=== PATIENT | male | born 1980 | race Hispanic/Latino ===

== ENCOUNTER 2025-01-23 13:54 | Emergency (ER) | payer BC, OTHER ==
[2025-01-23 14:56] LABS: Absolute Basophils 0.1 K/uL (0-0.5); Absolute Eosinophils 0.5 K/uL (0-0.5); Absolute Lymphocytes (CBC) 3.1 K/uL (0.7-4.9); Absolute Monocytes 0.6 K/uL (0.1-1.3); Absolute Neutrophil 1.7 K/uL (1.8-8.0); Basophils % 2.2 % (0-1.3); Eosinophils % 8.7 % (0-4.4); Hematocrit 20.3 % (39.6-49.0); Hemoglobin 6.6 g/dL (13.6-17.9); Lymphocytes % 50.3 % (15.3-44.8); MCH 23.9 pg (27.0-35.0); MCHC 32.4 g/dL (32.0-36.0); MCV 73.9 fL (80-100); MPV 7.2 fL (7.6-11.3); Monocytes % 10.2 % (3.3-12.3); Neutrophils % 28.6 % (41.7-73.7); Platelets 168 thou/uL (152-406); RBC Red Blood Cell Count 2.75 M/uL (4.33-5.43); Red Cell Distribution Width 20.7 % (12.1-15.2)
[2025-01-23 15:20] LABS: Albumin 2.8 g/dL (3.4-5.0); Albumin/Globulin Ratio 0.8 (1.1-1.8); Anion Gap 6.6 mEq/L (5.0-15.0); Bilirubin Total 2.8 mg/dL (0.2-1.0); Ferritin 25.4 ng/mL (26-388); Globulin 3.7 g/dL (2.3-3.5); Potassium 3.6 mEq/L (3.5-5.1); Protein, Total 6.5 g/dL (6.4-8.2)
[2025-01-23 16:33] LABS: Anisocytosis 1+; Blood Morphology Comment NOTED (NOT SEEN); Platelet Estimate ADEQ; White Blood Cell Scan OK (OK)
[2025-01-23 16:34] LABS: Poikilocytosis 1+
--- NOTE | 2025-01-23 17:33 | RAD REPORT ---
EXAMINATION: CT Abdomen Pelvis W Contrast CLINICAL INDICATION: Male, 44 years old. anemia, early satiety, anemia TECHNIQUE: CT abdomen and pelvis was performed, after the administration of IV contrast, as per [facility] protocol. Axial, sagittal and coronal reconstructions were obtained. One or more of the following dose reduction techniques were used: Automated exposure control, adjustment of the mA and k V according to patient size, and iterative reconstruction. Unless otherwise specified, incidental findings do not require dedicated imaging follow-up. COMPARISON: No prior exam. FINDINGS: LOWER CHEST: The visualized lung bases are clear. LIVER: Nodular contour suggesting cirrhosis. Ill-defined regions of hypoattenuation in the hepatic do me extending centrally, could relate to underlying focal lesion/mass. Prominent splenorenal tortuous varicosities suggesting sequelae of portosystemic shunting. BILIARY SYSTEM: Layering isodense material within the gallbladder suggesting sludge. Perihepatic flui d could be related to ongoing portal hypertension. No evidence of intra or extrahepatic biliary ductal dilation on CT. SPLEEN: Near upper limit of normal in size measuring 13.4 cm in long axis. No focal lesion. PANCREAS: No mass, ductal dilation, or fatuma-pancreatic fluid. ADRENALS: Normal; no mass. KIDNEYS: Normal size and contour. No hydronephrosis. URINARY BLADDER: Unremarkable. GASTROINTESTINAL TRACT: No evidence of free air, bowel obstruction or abscess. Mild central mesenter ic edema with trace fluid in the right perihepatic space, along the right paracolic gutter and in the pelvis. Mild distal colonic diverticulosis without evidence of acute diverticulitis. APPENDIX: Normal appendix. LYMPH NODES: No lymphadenopathy. MUSCULOSKELETAL: Healing right anterior eighth, ninth, and 10th rib fractures ADDITIONAL FINDINGS: None. IMPRESSION: Nodular contour of the liver with portosystemic varicosities, mild ascites, borderline splenomegaly, and mild mesenteric edema suggesting cirrhosis with portal hypertension. Ill-defined heterogeneous hypodensities in the region of the hepatic dome, could reflect an underlyin g mass, possibly hepatocellular carcinoma, or dysplastic cirrhotic nodules. The findings can be further evaluated by liver protocol MRI. Healing right anterior eighth, ninth, and 10th rib fractures. Gallbladder sludge.
--- NOTE | 2025-01-23 17:41 | RAD REPORT ---
EXAMINATION: US Abdomen Exam Limited CLINICAL HISTORY: Anemia. Early satiety. Abnormal CT COMPARISON: CT abdomen and pelvis of the same day. TECHNIQUE: Limited upper abdominal grayscale and color flow sonographic images. FINDINGS: Gallbladder: Partially decompressed limiting evaluation. Layering echogenic sludge with no evidence o f shadowing calculi. Wall appears thickened, 4-5 mm, although evaluation is limited by suboptimal distention. No wall hyperemia. Reportedly negative sonographic Cadena sign. Bile ducts: No intrahepatic or extrahepatic biliary dilatation. Common bile duct measures 5 mm. Liver: Visualized portions of the liver demonstrate normal echogenicity with no suspicious findings. Fluid: No ascites. IMPRESSION: Suboptimal gallbladder distention with layering sludge. No other sonographic findings to suggest acut e cholecystitis.
[2025-01-23] MEDS ORDERED: NA CHLORIDE 0.9% 500 ML ONE (18:56)
--- NOTE | 2025-01-24 00:08 | ER ---
Nurse's Notes [facility] Name: Jayson Masterson Age: 44 yrs Sex: Male : 1980 Arrival Date: 01/23/2025 Time: 13:54 Bed 20 Private MD: Diagnosis: Anemia, unspecified;Chronic microcytic anemia,;LIver Cirrhosis with Portal Hypertension , Ascites Presentation: 01/23 14:05 Chief complaint: Patient states: Weak and fatigued for about a year. HGB 6.4 with ll1 Fridays blood draw. Coronavirus screen: Client denies travel out of the [place] in the last 14 days. At this time, the client does not indicate any symptoms associated with coronavirus-19. Ebola Screen: Patient denies travel to an Ebola-affected area in the 21 days before illness onset. Initial Sepsis Screen: Does the patient meet any 2 criteria? No. Patient's initial sepsis screen is negative. Does the patient have a suspected source of infection? No. Patient's initial sepsis screen is negative. Risk Assessment: Do you want to hurt yourself or someone else? Patient reports no desire to harm self or others. Onset of symptoms was January 19, 2025. 14:05 Method Of Arrival: Ambulatory ll1 14:05 Acuity: SAMI 2 ll1 Triage Assessment: 14:00 General: Appears uncomfortable, Behavior is calm, cooperative, appropriate for age, ll1 Reports fatigue for. General: Reports low HGB, needs blood transfusion. Pain: Complains of pain in ribs Quality of pain is described as aching. Neuro: Reports dizziness, weakness. Respiratory: Reports pain in broken ribs. Historical: - Allergies: 14:03 Prednisone; ll1 14:03 tramadol; ll1 - PMHx: 14:00 Anxiety; Asthma; ll1 - PSHx: 14:03 leg surgery; ll1 - Immunization history:: Adult Immunizations up to date. - Infectious Disease History:: Denies. - Social history:: Smoking status: Patient reports the use of cigarette tobacco products, smokes .2 packs per day. - Family history:: not pertinent. - Hospitalizations: : No recent hospitalization is reported. Screenin:[address] [facility] ED Fall Risk Assessment (Adult) History of falling in the last 3 months, dd2 including since admission No falls in past 3 months (0 pts) Confusion or Disorientation No (0 pts) Intoxicated or Sedated No (0 pts) Impaired Gait No (0 pts) Mobility Assist Device Used No (0 pt) Altered Elimination No (0 pt) Score/Fall Risk Level 0 - 2 = Low Risk Oriented to surroundings, Maintained a safe environment, Educated pt \T\ family on fall prevention, incl call for assistance when getting out of bed, Assessed \T\ reinforced patient's understanding of fall precautions, Hourly rounding (assess needs \T\ fall precautionary measures) done. Abuse screen: Denies threats or abuse. Denies injuries from another. Nutritional screening: No deficits noted. Tuberculosis screening: No symptoms or risk factors identified. Assessment: 15:59 Reassessment: No changes from previously documented assessment. Patient and/or family ll1 updated on plan of care and expected duration. Pain level reassessed. 16:45 Reassessment: ASSUMING CARE OF THE PT AT THIS TIME. dd2 21:28 Reassessment: INFUSION OF 1ST UNIT PRBC COMPLETED. PT TOLERATED WELL. dd2 01/24 00:05 Reassessment: Patient and/or family updated on plan of care and expected duration. Pain br2 level reassessed. Patient is alert, oriented x 3, equal unlabored respirations, skin warm/dry/pink. Patient states feeling better. Patient states symptoms have improved. Vital Signs: 01/23 14:05 BP 154 / 87; Pulse 105; Resp 17; Temp 98.6; Pulse Ox 95% ; Weight 115.67 kg; Height 6 ll1 ft. 0 in. ; Pain 7/10; 19:02 BP 144 / 83; Pulse 102; Resp 16; Temp 98.2; Pulse Ox 100% on R/A; dd2 22:08 BP 129 / 68; Pulse 88; Resp 16; Temp 98.4; Pulse Ox 98% on R/A; dd2 01/24 00:05 BP 129 / 68; Pulse 86; Resp 18; Temp 97.1(O); Pulse Ox 95% on R/A; Pain 0/10; br2 01/23 14:05 Body Mass Index 34.58 (115.67 kg, 182.88 cm) ll1 01/23 14:05 Pain Scale: Adult ll1 01/24 00:05 Pain Scale: Adult br2 01/23 19:02 SEE TRANSFUSION FLOW SHEET FOR VITALS dd2 22:08 SEE TRANSFUSION RECORD FOR VS dd2 [place] Coma Score: 16:45 Eye Response: spontaneous(4). Motor Response: obeys commands(6). Verbal Response: dd2 oriented(5). Total: 15. ED Course: 13:59 Patient arrived in ED. gl 14:03 Umberto Byrd MD is Attending Physician. rn 14:06 Triage completed. ll1 14:43 Iron Level Sent. hb 14:43 TRANSFERRIN SAT/IRON BINDING Sent. hb 14:43 Type And Screen Sent. hb 14:43 CBC with Diff Sent. hb 14:43 CMP Sent. hb 14:43 Lipase Sent. hb 14:43 Initial lab(s) drawn, by me, sent to lab. T\T\S collected, blood band applied to patient. hb Inserted saline lock: 20 gauge in left forearm, using aseptic technique. Blood collected. Flushed with 10 mL NS. 14:59 Radiology exam delayed due to lab results not completed at this time. (BUN/Creatinine). jc4 15:56 CT Abd/Pelvis - IV Contrast Only In Process Unspecified. EDMS 15:59 Patient placed in an exam room, on a stretcher. ll1 16:01 SMITH LA, RN is Primary Nurse. dd2 16:45 Patient has correct armband on for positive identification. Bed in low position. Call dd2 light in reach. Side rails up X 1. Client placed on continuous cardiac and pulse oximetry monitoring. NIBP monitoring applied. end user support specialist on. Door closed. Noise minimized. Warm blanket given. Pillow given. Verbal reassurance given. 16:45 No provider procedures requiring assistance completed. Patient maintains SpO2 dd2 saturation greater than 95% on room air. 17:15 Consent for blood and/or blood product transfusion explained by staff, explained by dd2 physician, signed by patient. 17:34 US Abdomen Limited In Process Unspecified. EDMS 20:26 Attending Physician role handed off by Umberto Byrd MD sp4 20:26 Jose Steel MD is Attending Physician. sp4 01/24 00:07 Aftab Chinchilla MD is Referral Physician. sp4 00:47 IV discontinued, intact, bleeding controlled, No redness/swelling at site. Pressure br2 dressing applied. Administered Medications: No medications were administered Medication: 01/23 16:45 VIS not applicable for this client. dd2 Outcome: 01/24 00:07 Discharge ordered by . sp4 00:47 Discharged to home ambulatory, br2 00:47 Condition: improved 00:47 Discharge instructions given to patient, Instructed on discharge instructions, follow up and referral plans. Demonstrated understanding of instructions, follow-up care, 00:48 Patient left the ED. br2 Signatures: Dispatcher [employer] EDMS Umberto Byrd MD MD rn Baxter, Heather, RN RN hb Lewis, Lynsay, RN RN ll1 Jose Steel MD MD sp4 Riddle, Belinda, RN RN br2 Nelson Daniels jcSMITH ENAMORADO RN RN dd2 Meryl Pérez, Reg Reg gl Corrections: (The following items were deleted from the chart) 01/23 14:05 14:00 Allergies: No Known Drug Allergies; ll1 ll1 15:59 14:00 Arm band placed on Patient placed in an exam room, on a stretcher, ll1 ll1
--- NOTE | 2025-01-24 00:08 | EDPHYS ---
Physician Documentation [facility] Name: Jayson Masterson Age: 44 yrs Sex: Male : 1980 Arrival Date: 01/23/2025 Time: 13:54 Bed 20 Private MD: ED Physician Jose Steel HPI: 01/23 15:08 This 44 yrs old Male presents to ER via Ambulatory with complaints of Abnormal graduate intern Results. 15:08 Patient reports had blood draw on Wednesday and revealed hemoglobin of 6.4. Patient rn reports generalized weakness and malaise with low energy. Patient reports has been told in the past he is anemic but never this low but has been dealing with anemia for about a year. Has been told that he needs to follow-up with hematology to rule out other causes.. Denies any recent trauma or gross bleeding. Patient does report intermittent blood in stool but has not seen a change recently. Patient is a frequent and heavy drinker but no known liver problems. Patient has never had an endoscopy or colonoscopy.. Historical: - Allergies: 14:03 Prednisone; ll1 14:03 tramadol; ll1 - PMHx: 14:00 Anxiety; Asthma; ll1 - PSHx: 14:03 leg surgery; ll1 - Immunization history:: Adult Immunizations up to date. - Infectious Disease History:: Denies. - Social history:: Smoking status: Patient reports the use of cigarette tobacco products, smokes .2 packs per day. - Family history:: not pertinent. - Hospitalizations: : No recent hospitalization is reported. ROS: 15:08 Constitutional: Negative for fever, chills, and weight loss, Cardiovascular: Negative rn for chest pain, palpitations, and edema, Respiratory: Negative for shortness of breath, cough, wheezing, and pleuritic chest pain, Abdomen/GI: Negative for abdominal pain but reports early satiety MS/Extremity: Negative for injury and deformity, Skin: Negative for injury, rash, and discoloration, Neuro: Positive for weakness and malaise Exam: 15:08 Constitutional: This is a well developed, well nourished patient who is awake, alert, rn with mild tachypnea Cardiovascular: Tachycardic, regular Respiratory: Mild tachypnea, no retractions Abdomen/GI: Soft, nontender MS/ Extremity: Pulses equal, no cyanosis. Neurovascular intact. Full, normal range of motion. Equal circumference. Neuro: Awake and alert, GCS 15 18:45 ECG was reviewed by the Attending Physician. rn Vital Signs: 14:05 BP 154 / 87; Pulse 105; Resp 17; Temp 98.6; Pulse Ox 95% ; Weight 115.67 kg; Height 6 ll1 ft. 0 in. ; Pain 7/10; 19:02 BP 144 / 83; Pulse 102; Resp 16; Temp 98.2; Pulse Ox 100% on R/A; dd2 22:08 BP 129 / 68; Pulse 88; Resp 16; Temp 98.4; Pulse Ox 98% on R/A; dd2 01/24 00:05 BP 129 / 68; Pulse 86; Resp 18; Temp 97.1(O); Pulse Ox 95% on R/A; Pain 0/10; br2 01/23 14:05 Body Mass Index 34.58 (115.67 kg, 182.88 cm) ll1 01/23 14:05 Pain Scale: Adult ll1 01/24 00:05 Pain Scale: Adult br2 01/23 19:02 SEE TRANSFUSION FLOW SHEET FOR VITALS dd2 22:08 SEE TRANSFUSION RECORD FOR VS dd2 [place] Coma Score: 16:45 Eye Response: spontaneous(4). Motor Response: obeys commands(6). Verbal Response: dd2 oriented(5). Total: 15. MDM: 14:03 Medical Screening Exam initiated rn 18:05 ED course: Patient already with signs of cirrhosis on imaging. No other acute findings. rn Notified patient of possible liver mass and need for workup. As patient and family multiple times and there is no current or active bleeding. No hematemesis or dark stool or bloody stool. Will transfuse and recommend GI and hematology follow-up. Patient has iron deficiency anemia. No indication for emergent admission at this time or transfer. Return precautions given and understood.. 01/24 00:08 Differential Diagnosis altered mental status, sepsis, flu. Data reviewed: vital signs, sp4 nurses notes, lab test result(s), radiologic studies, CT scan. Consideration of Admission/Observation Escalation of care including admission/observation considered. 00:11 ED course: EXAMINATION: US Abdomen Exam Limited CLINICAL HISTORY: Anemia. Early sp4 satiety. Abnormal CT COMPARISON: CT abdomen and pelvis of the same day. TECHNIQUE: Limited upper abdominal grayscale and color flow sonographic images. FINDINGS: Gallbladder: Partially decompressed limiting evaluation. Layering echogenic sludge with no evidence of shadowing calculi. Wall appears thickened, 4-5 mm, although evaluation is limited by suboptimal distention. No wall hyperemia. Reportedly negative sonographic Cadena sign. Bile ducts: No intrahepatic or extrahepatic biliary dilatation. Common bile duct measures 5 mm. Liver: Visualized portions of the liver demonstrate normal echogenicity with no suspicious findings. Fluid: No ascites. IMPRESSION: Suboptimal gallbladder distention with layering sludge. No other sonographic findings to suggest acute cholecystitis. Reported By: Ayo Banda. ED course: CT - IMPRESSION: Nodular contour of the liver with portosystemic varicosities, mild ascites, borderline splenomegaly, and mild mesenteric edema suggesting cirrhosis with portal hypertension. Ill-defined heterogeneous hypodensities in the region of the hepatic dome, could reflect an underlying mass, possibly hepatocellular carcinoma, or dysplastic cirrhotic nodules. The findings can be further evaluated by liver protocol MRI. Healing right anterior eighth, ninth, and 10th rib fractures. Gallbladder sludge. . 01/23 14:13 Order name: CBC with Diff; Complete Time: 16:37 [facility] 01/23 14:13 Order name: CMP; Complete Time: 15:57 1 01/23 14:13 Order name: Lipase; Complete Time: 15:57 1 01/23 14:13 Order name: Type And Screen 1 01/23 14:13 Order name: Iron Level; Complete Time: 15:57 1 01/23 14:13 Order name: TRANSFERRIN SAT/IRON BINDING; Complete Time: 15:57 1 01/23 16:00 Order name: Bb Add On bd 01/23 16:18 Order name: Packed RBCs (Additional Unit) EDND 01/23 16:34 Order name: CBC Smear Scan; Complete Time: 16:37 EDND 01/23 16:52 Order name: ABO/RH no charge; Complete Time: 17:30 EDND 01/23 14:13 Order name: CT Abd/Pelvis - IV Contrast Only; Complete Time: 17:51 1 01/23 16:49 Order name: US Abdomen Limited; Complete Time: 17:51 rn 05/06 14:13 Order name: IV Saline Lock; Complete Time: 14:43 ll1 01/23 14:13 Order name: Labs collected and sent; Complete Time: 14:43 ll1 01/23 14:13 Order name: EKG - Nurse/Tech; Complete Time: 17:22 ll1 EC/06 18:45 Rate is 94 beats/min. Rhythm is regular. QRS [place] is Normal. CA interval is normal. QRS rn interval is normal. QT interval is prolonged. No Q waves. T waves are Normal. No ST changes noted. Clinical impression: NSR w/ Non-specific ST/T Changes. Interpreted by me. Reviewed by me. Administered Medications: No medications were administered Disposition Summary: 01/24/25 00:07 Discharge Ordered Notes: Location: Home sp4 Problem: new sp4 Symptoms: have improved sp4 Condition: Stable sp4 Diagnosis - Anemia, unspecified sp4 - Chronic microcytic anemia, sp4 - LIver Cirrhosis with Portal Hypertension , Ascites sp4 Followup: sp4 - With: Aftab Chinchilla MD - When: 7 - 10 days - Reason: Recheck today's complaints Discharge Instructions: - Discharge Summary Sheet sp4 - Blood Transfusion, Adult sp4 Forms: - Patient Portal Instructions sp4 Signatures: Dispatcher [employer] EDMS Umberto Byrd MD MD rn Lewis, Lynsay, RN RN ll1 Jose Steel MD MD sp4 SMITH LA RN RN dd2 Corrections: (The following items were deleted from the chart) 14:05 14:00 Allergies: No Known Drug Allergies; [place] [id number] 14:14 14:14 Abdomen Pelvis W Con+CT.RAD.BRZ ordered. EDND EDMS 16:00 15:08 Patient reports had blood draw on Wednesday and revealed hemoglobin of 6.4. Patient rn reports generalized weakness and malaise with low energy. Patient reports has been told in the past he is anemic but never this low. Denies any recent trauma or gross bleeding. Patient does report intermittent blood in stool but has not seen a change recently. Patient is a frequent and heavy drinker but no known liver problems. Patient has never had an endoscopy or colonoscopy.. rn 16:50 16:50 Abdomen Limited+US.RAD.BRZ ordered. EDND EDMS
[2025-01-24 08:13] VITALS: BP 129/68
[2025-01-24 08:15] VITALS: TEMP 97.1; O2SAT 95
--- NOTE | 2025-01-25 11:47 | EKG ---
Test Date: 2025-01-23 Test Time: 17:18:37 [employer] Husband[employer] Worker: FELA MEASUREMENT RESULTS: Intervals: Rate: 94 WA: 160 QRSD: 90 QT: 394 QTc: 492 [place]: P: 74 WA: 160 QRS: 20 T: 53 INTERPRETIVE STATEMENTS: Normal sinus rhythm Prolonged QT Abnormal ECG Compared to ECG 03/21/2016 16:50:17 Prolonged QT interval now present Sinus tachycardia no longer present Electronically Signed On 01-25-25 11:42:46 CDT by Lyle Tejeda
== END 2025-01-24 00:48 | disposition home or self-care (01) ==
LOC: ER 13:54
PROC: 30233N1 Transfusion of Nonautologous Red Blood Cells into Peripheral Vein, Percutaneous Approach (ICD-10-PCS; principal; 2025-01-24)
DX: D50.9 Iron deficiency anemia, unspecified (principal); K74.69 Other cirrhosis of liver; K76.6 Portal hypertension; R18.8 Other ascites; Z72.0 Tobacco use
CPT/HCPCS: 93005; 85025; 36415; 86900; 86850; 86901; 86920 ×2; 82728; 83690; 83540; 80053; 84466; 74177; 76705; 36430; Q9967; P9016 ×2; J7040